=== PATIENT | male | born 1995 | race African-American/Black ===

== ENCOUNTER 2018-01-03 23:30 | Emergency (ER) | payer SELFPAY ==
[2018-01-04] MEDS ORDERED: Lidocaine Viscous Sol 2% 15 ml UD Cup ONE (00:43)
[2018-01-04] MEDS ORDERED: Mag-Al 1200 mg/1200 mg/30 ML UDCUP ONE (00:43)
== END 2018-01-04 00:51 | disposition home or self-care (01) ==
LOC: ERS 23:30
DX: Z03.89 Encounter for observation for other suspected diseases and conditions ruled out (principal)
CPT/HCPCS: 99283

== ENCOUNTER 2018-02-18 16:02 | Emergency (ER) | payer SELFPAY ==
--- NOTE | 2018-02-18 17:07 | RAD ---
RADIOGRAPH LEFT ANKLE 3 VIEWS: 02/18/18 HISTORY: 22-year-old male status post acute traumatic injury to the ankle. FINDINGS: There is no fracture or dislocation. Talar dome is maintained. Ankle mortise is symmetrical. IMPRESSION: Negative. POS: [facility]
== END 2018-02-18 17:45 | disposition home or self-care (01) ==
LOC: ERS 16:02
DX: S93.402A Sprain of unspecified ligament of left ankle, initial encounter (principal); X50.1XXA Overexertion from prolonged static or awkward postures, initial encounter

== ENCOUNTER 2019-12-12 04:05 | Emergency (ER) | payer SELFPAY ==
[2019-12-12] MEDS ORDERED: Lorazepam 2 MG/ML VIAL ONE (04:27)
[2019-12-12 04:53] LABS: ALT (SGPT) 15 U/L (8-55); AST (SGOT) 27 U/L (5-34); Albumin 5.1 g/dL (3.5-5.0); Alkaline Phosphatase 61 U/L (40-110); Anion Gap 17 mmol/L (10-20); BUN (Urea Nitrogen) 9 mg/dL (8.9-20.6); Bilirubin, Total 1.1 mg/dL (0.2-1.2); Calc. Creatinine Clearance 0 mL/min (70-130); Calcium 10.3 mg/dL (7.8-10.44); Carbon Dioxide 19 mmol/L (22-29); Chloride 104 mmol/L (98-107); Estimated GFR-MDRD 75; Globulin 3.2 g/dL (2.4-3.5); Glucose 114 mg/dL (70-105); Potassium 3.4 mmol/L (3.5-5.1); Protein, Total 8.3 g/dL (6.0-8.3); Sodium 137 mmol/L (136-145)
[2019-12-12 05:12] LABS: Anisocytosis SLIGHT = 6-15 cells (100X) (0-5/hpf); Band 2 % (5-11); Elliptocytes SLIGHT = 2-5 cells (100X) (0-1/hpf); Hemoglobin 12.5 g/dL (14.0-18.0); Lymphocytes 17 % (21-51); MDiff Complete? YES; Mean Corpuscular HGB CONC 33.2 g/dL (32.0-36.0); Mean Corpuscular Hemoglobin 23.9 pg (27.0-31.0); Mean Corpuscular Volume 72.2 fL (78.0-98.0); Mean Platelet Volume 9.2 fL (7.4-10.4); Monocytes 6 % (0-10); Neutrophil 75 % (42-75); Platelet Count 233 thou/uL (130-400); RBC Distribution Width 14.8 % (11.5-14.5); Red Blood Cell (RBC) Count 5.24 mill/uL (4.70-6.10); Target Cells MODERATE= 6-15 cells (100X) (0-1/hpf); White Blood Cell (WBC) Count 13.1 thou/uL (4.8-10.8)
[2019-12-12] MEDS ORDERED: Albuterol 200 PUFF (6.7GM INHALER) ONE (06:29)
--- NOTE | 2019-12-12 07:21 | RAD ---
CHEST 1 VIEW: INDICATION: History of shortness of breath and chest pain. COMPARISON: None. FINDINGS: Lungs are mildly hyperexpanded but clear. Heart size is accentuated by the exam technique. Portions of the left costophrenic angle are excluded. No overt pneumothorax is evident. No definite acute o sseous abnormality is noted. IMPRESSION: No definite acute cardiopulmonary abnormality. POS: [facility]
--- NOTE | 2019-12-16 10:17 | EKG ---
Test Reason : Blood Pressure : / mmHG Vent. Rate : 133 BPM Atrial Rate : 133 BPM P-R Int : 154 ms QRS Dur : 070 ms QT Int : 234 ms P-R-T Axes : 088 078 045 degrees QTc Int : 348 ms Sinus tachycardia Possible Inferior infarct , age undetermined Abnormal ECG Confirmed by SERGIO LUU ([id number]), image editor ALEJANDRA OCONNELL ([id number]) on 12/16/2019 10:17:38 AM Referred By: Confirmed By:SERGIO LUU
== END 2019-12-12 07:58 | disposition home or self-care (01) ==
LOC: ERS 04:05 → MERGE 04:05 → ERS 07:58
DX: R07.9 Chest pain, unspecified (principal); R06.02 Shortness of breath
CPT/HCPCS: 71045; 80053; 84484; 85025; 93005; 96374; J2060